=== PATIENT | male | born 1980 | race Caucasian/White ===

== ENCOUNTER 2019-01-01 13:12 | Emergency (ER) | payer MEDICAID ==
[~2019-01-01] VITALS: Wt 71.2 kg
[2019-01-01 13:18] VITALS: BP 123/67; PULSE 88; RESP 20
--- NOTE | 2019-01-01 14:50 | ERD ---
ER Documentation Chief Complaint Chief Complaint L wrist pain p fall today playing soccer. limited ROM; +circ/ sensation. HPI 38 yo male with a non sig pmhx presents with left wrist pain x 1 day. patient was playing soccer earlier today and fell on an outstretched hand. admits to painful rom and decreased rom. denies fevers, chills, tingling, numbness, lack of sensation. nkda ROS All systems reviewed and are negative except as per history of present illness. Allergies Allergies: Coded Allergies: No Known Allergy (Unverified , 01/01/19) PMhx/Soc Medical and Surgical Hx: pt denies Medical Hx, pt denies Surgical Hx Hx Alcohol Use: Yes (occasional social) Hx Substance Use: No Hx Tobacco Use: No Smoking Status: Never smoker Physical Exam Vitals Vital Signs Date Temp Pulse Resp B/P (MAP) Pulse Ox O2 O2 Flow FiO2 Time Delivery Rate 01/01/19 98.7 88 20 123/67 98 13:18 (85) Physical Exam Const: No acute distress Head: Atraumatic Eyes: Normal Conjunctiva ENT: Normal External Ears, Nose and Mouth. Neck: Full range of motion. No meningismus. Resp: Clear to auscultation bilaterally Cardio: Regular rate and rhythm, no murmurs Ext: No cyanosis, or edema Upper Extremity - left Skin: No laceration, or evidence of external trauma Compartments: Soft Motor: Decreased range of motion with left wrist flexion and extension, full active range of motion shoulder/elbow//hand Sensation: Intact shoulder/pinky/middle finger/thumb web space Bones: Mild tenderness palpation along the dorsal left wrist, nontender humerus/elbow/forearm//hand Snuffbox: Nontender Joints: No effusion Pulses/Perfusion: 2+ radial, Capillary refill < 2 seconds Neur: Awake and alert Psych: Normal Mood and Affect Results 24 hrs Current Medications Medications Dose Sig/Adi Start Time Status Last (Trade) Ordered Route PRN Stop Time Admin Dose Reason Admin 1 tab ONCE ONCE 01/01/19 DC 01/01/19 Acetaminophen PO 15:00 14:58 / 01/01/19 15:01 Hydrocodone Bitart ([place] (5/325)) Procedures/MDM EKG, MONITORS, & DIAGNOSTIC IMAGING: [place] [id number] Radiology Main Line: [phone] DIAGNOSTIC IMAGING REPORT Patient: WILLOW PEREZ : 1980 Age: 38 Sex: M [id number] DOS: 01/01/19 1445 Ordering MD: JENAE RAMIREZ PA-C Location: [facility] Room/Bed: PROCEDURE: XR Forearm. CLINICAL INDICATION: Forearm pain. TECHNIQUE: AP and lateral views of the left forearm were obtained. COMPARISON: No prior studies are available for comparison. FINDINGS: There is a minimally displaced oblique fracture of the distal radial metaphysis. The fracture does not appear to extend to the radiocarpal articulation. A nondisplaced ulnar styloid avulsion fracture is also present. The remainder of the ulna and radius are intact. The visualized elbow joint is unremarkable. There is soft tissue swelling around the distal forearm and wrist. RPTAT: ZZ IMPRESSION: 1. Minimally displaced oblique fracture of the distal radial metaphysis. 2. Nondisplaced ulnar styloid avulsion fracture. .Jenniffer Suarez MD, MD Date Time Electronically viewed and signed by .Jenniffer Suarez MD, MD on 01/01/2019 15:23 .T/ CC: JENAE RAMIREZ PA-C [id number] PROCEDURES: Splint Type: short arm Extremity: LUE Indication: Oblique fracture of distal radial metaphysis and nondisplaced ulnar styloid avulsion fracture Splint Assessment: Neurovascularly intact post splint placement with good fit. The patient was consented at bedside prior to splint application and states understanding of risks, benefits, and alternatives. The patient was neurovascularly intact prior to and status post application of the splint. The patient tolerated the procedure well and there were no complications ER COURSE: The patient was given norco The medication was well tolerated and the patient reports improvement in symptoms. The patient was stable throughout ED course. I kept the patient and/or family informed of laboratory and diagnostic imaging results throughout the emergency room course. The patient was promptly evaluated and a treatment plan was devised based on H&P and other data. This plan was discussed with the patient who agreed and had no further questions or concerns prior to discharge. MEDICAL DECISION MAKING: This is a 38-year-old male presents ED with dorsal left wrist pain status post falling on outstretched hand during soccer earlier today. X-rays remarkable for a minimally distal oblique fracture of the distal radial metaphysis, and a nondisplaced ulnar styloid avulsion fracture. Patient was placed in a short arm splint and advised to follow-up with reproduction specialist in the next 48 hours. Patient was given copies of imaging done in emergency department. History and physical examination other data not consistent with emergent processes including but not limited to open fracture, dislocation, tendon rupture, ischemia, neurovascular injury, compartment syndrome, septic joint, avascular necrosis, osteomyelitis, necrotizing fasciitis, septic joint, septic arthritis, or other emergent conditions. Patient's vitals are stable and can be managed outpatient with close follow-up. Advised patient to follow-up with primary care in the next 48 hours. Return to ED with any worsening symptoms. DISPOSITION PLAN: We discussed follow up with the patient's primary care doctor within 24 to 48 hours. Patient counseled regarding my diagnostic impression and care plan. Prior to discharge all questions answered. Pt agrees with treatment plan and understands strict return precautions. Precautionary instructions provided including instructions to return to the ER if not improving or for any worsening or changing symptoms or concerns. SPECIALIST FOLLOW UP RECOMMENDED: ortho Patient has been advised to follow up with primary care in 1-2 days. Disclaimer: Inadvertent spelling and grammatical errors are likely due to EHR/dictation software use and do not reflect on the overall quality of patient care. Also, please note that the electronic time recorded on this note does not necessarily reflect the actual time of the patient encounter. Departure Diagnosis: Primary Impression: Radius distal fracture Encounter type: initial encounter Fracture type: closed Fracture morphology: unspecified fracture morphology Laterality: right Qualified Codes: S52.501A - Unspecified fracture of the lower end of right radius, initial encounter for closed fracture Additional Impression: Fracture of right ulnar styloid Encounter type: initial encounter Fracture type: closed Fracture alignment: nondisplaced Qualified Codes: S52.614A - Nondisplaced fracture of right ulna styloid process, initial encounter for closed fracture Condition: Stable Patient Instructions: Fracture, Wrist [General] [facility] Additional Instructions: Paciente aconseja volver a Departamento de urgencias inmediatamente para sntomas nuevos o que empeoran . Paciente aconseja posteriores con el PCP en 1-2 mendez . Paciente verbaliza la comprehensin y est de acuerdo con el tratamiento y el curso de accin. Si el paciente no tiene ninguna de atencin primaria pueden seguir con [facility] [id number] [place] [address] o [facility] + [address] [address] JENAE RAMIREZ PA-C Jan 01, 2019 14:50
[2019-01-01] MEDS ORDERED: HYDROCODONE/APAP (5/325) TAB PO ONE (15:00)
[2019-01-01] MEDS ORDERED: IBUP-1542 PO (15:38)
[2019-01-01] MEDS ORDERED: HYDR-4011 PO (15:38)
== END 2019-01-01 16:05 | disposition home or self-care (01) ==
LOC: FTE 13:12
DX: S52.501A Unspecified fracture of the lower end of right radius, initial encounter for closed fracture (principal); S52.614A Nondisplaced fracture of right ulna styloid process, initial encounter for closed fracture; W18.30XA Fall on same level, unspecified, initial encounter; Y92.322 Soccer field as the place of occurrence of the external cause
CPT/HCPCS: 29125; 73090; 73110; Z7610